=== PATIENT | male | born 1980 | race Caucasian/White ===

== ENCOUNTER 2022-05-18 05:54 | Emergency (ER) | payer OTHER ==
[2022-05-18] MEDS ORDERED: FLOMAX0.4 MG PO (06:58)
[2022-05-18] MEDS ORDERED: HYDROCODON-ACE1 EA10 PO ×2 (07:10→09:21)
== END 2022-05-18 08:00 | disposition home or self-care (01) ==
LOC: ED 05:54
DX: N13.2 Hydronephrosis with renal and ureteral calculous obstruction (principal)
CPT/HCPCS: 36415; 74176; 80053; 85025; 96374; 96375; 99284-25; A9270; J1790; J1885; J2270; J2405; J3010; J7121

== ENCOUNTER 2022-10-23 18:50 | Emergency (ER) | payer OTHER ==
[~2022-10-23] VITALS: Ht 177.8 cm; Wt 82.1 kg
[~2022-10-23 18:50] MED LIST: FLOMAX0.4 MG PO; HYDROCODON-ACE1 EA10 PO
[2022-10-23] MEDS ORDERED: AMOX TR-K CLV1 EAC1 PO (21:55)
[2022-10-23 22:09] VITALS: BP 118/73
== END 2022-10-23 22:05 | disposition home or self-care (01) ==
LOC: ED 18:50
DX: S62.601A Fracture of unspecified phalanx of left index finger, initial encounter for closed fracture (principal); W27.8XXA Contact with other nonpowered hand tool, initial encounter